=== PATIENT | male | born 1995 | race Hispanic/Latino ===

== ENCOUNTER 2023-09-26 13:55 | Emergency (ER) | payer SELFPAY ==
[2023-09-26] MEDS ORDERED: Morphine 4 MG/ML VIAL ONE (15:01)
[2023-09-26] MEDS ORDERED: Ondansetron PF 4 MG/2 ML Vial ONE (15:01)
[2023-09-26] MEDS ORDERED: Ketorolac Tromethamine 30 MG (1 mL) VIAL ONE (15:01)
== END 2023-09-26 16:34 | disposition home or self-care (01) ==
LOC: ERS 13:55
DX: S42.002A Fracture of unspecified part of left clavicle, initial encounter for closed fracture (principal); F17.210 Nicotine dependence, cigarettes, uncomplicated; W13.3XXA Fall through floor, initial encounter; Z75.8 Other problems related to medical facilities and other health care
CPT/HCPCS: 71045; 96374; 96375; J1885; J2270; J2405